=== PATIENT | female | born 1985 | race Caucasian/White ===

== ENCOUNTER 2020-09-14 16:31 | Emergency (ER) | payer MEDICARE, OTHER ==
[~2020-09-14 16:31] MED LIST: ADVAIR 250-501 EACH INH; BACTRIM DS TAB1 EACH PO; CYCLOBENZAPRINE10 MG PO; EFFEXOR XR 75 M75 MG PO; GABAPENTIN800 MG PO; HYDROXYZINE HCL25 MG PO; IBUPROFEN800 MG PO; MONTELUKAST SOD10 MG PO; NORETHINDRONE AC5 MG PO; OXYCODONE-ACET1 EACH PO; PHENERGAN 25 MG25 M1 PO; PREMARIN1.25 MG PO; ROPINIROLE HCL1 MG PO; TOPIRAMATE100 MG PO; TOPROL XL100 MG PO; VAGIFEM10 MCG VG; VALACYCLOVIR1000 MG PO; VENTOLIN HFA 66.7 GM INH; VIBRAMYCIN100 MG PO; VIIBRYD20 MG PO; WELLBUTRIN SR150 M1 PO; ZAFIRLUKAST20 MG PO
== END 2020-09-14 17:44 | disposition left against medical advice (07) ==
LOC: ER1 16:31
DX: R50.9 Fever, unspecified (principal); R09.81 Nasal congestion; M79.10 Myalgia, unspecified site; Z53.21 Procedure and treatment not carried out due to patient leaving prior to being seen by health care provider

== ENCOUNTER → 2020-09-28 | Outpatient (CLI) | payer MEDICARE, OTHER ==
[~2020-09-28] MED LIST changes: +BACITRACIN3.5 GM TOP; +VIBRAMYCIN 100100 MG PO
== END ==
LOC: KOH-I 09-23 09:00
DX: Z01.818 Encounter for other preprocedural examination (principal); Z95.0 Presence of cardiac pacemaker
CPT/HCPCS: 70450

== ENCOUNTER 2021-03-23 18:42 | Emergency (ER) | payer MEDICARE, OTHER ==
[~2021-03-23 18:42] MED LIST changes: -BACITRACIN3.5 GM TOP; -VIBRAMYCIN 100100 MG PO
[2021-03-23] MEDS ORDERED: VIBRAMYCIN 100100 MG PO (22:02)
[2021-03-23] MEDS ORDERED: BACITRACIN3.5 GM TOP (22:02)
== END 2021-03-23 22:50 | disposition home or self-care (01) ==
LOC: ER1 18:42
DX: L02.214 Cutaneous abscess of groin (principal); Z88.2 Allergy status to sulfonamides; Z88.8 Allergy status to other drugs, medicaments and biological substances
CPT/HCPCS: 96374; 96375; 99282; J2270; J2405; J7030

== ENCOUNTER 2021-04-09 03:50 | Emergency (ER) | payer MEDICARE, OTHER ==
[~2021-04-09 03:50] MED LIST changes: +BACITRACIN3.5 GM TOP; +VIBRAMYCIN 100100 MG PO
[2021-04-09 04:33] LABS: HEMOGLOBIN 12.5 gm/dl (12.3-15.3); RED BLOOD COUNT 4.16 M/UL (4.00-5.10); WHITE BLOOD COUNT 11.1 K/UL (4.5-11.0)
[2021-04-09 05:03] LABS: BUN/CREATININE RATIO 20 (0-10)
== END 2021-04-09 07:03 | disposition home or self-care (01) ==
LOC: ER1 03:50
PROVIDERS: Family Medicine
DX: R56.9 Unspecified convulsions (principal); Z53.21 Procedure and treatment not carried out due to patient leaving prior to being seen by health care provider; Z20.822 Contact with and (suspected) exposure to COVID-19
CPT/HCPCS: 0241U; 36415; 71045; 80053; 82550; 82553; 83615; 83874; 84484; 85025; 85652; 86140; 99285

== ENCOUNTER 2022-01-10 08:39 | Emergency (ER) | payer MEDICARE, OTHER ==
[2022-01-10] MEDS ORDERED: HYDROCODON-ACE1 EAC4 PO (11:53)
== END 2022-01-10 12:12 | disposition home or self-care (01) ==
LOC: ER1 08:39
DX: S30.0XXA Contusion of lower back and pelvis, initial encounter (principal); W19.XXXA Unspecified fall, initial encounter
CPT/HCPCS: 72100; 96372; 99283; J2270

== ENCOUNTER 2022-05-13 14:54 | Emergency (ER) | payer MEDICARE, OTHER ==
[~2022-05-13 14:54] MED LIST changes: +HYDROCODON-ACE1 EAC4 PO
[2022-05-13] MEDS ORDERED: CEPHALEXIN500 MG PO (17:47)
[2022-05-13] MEDS ORDERED: NAPROSYN500 MG PO (17:47)
== END 2022-05-13 18:15 | disposition home or self-care (01) ==
LOC: ER1 14:54
DX: N61.1 Abscess of the breast and nipple (principal); Z90.49 Acquired absence of other specified parts of digestive tract; Z90.710 Acquired absence of both cervix and uterus; Z95.0 Presence of cardiac pacemaker; Z88.2 Allergy status to sulfonamides; Z88.8 Allergy status to other drugs, medicaments and biological substances; Z88.1 Allergy status to other antibiotic agents; Z79.899 Other long term (current) drug therapy
CPT/HCPCS: 10060; 87070; 87205; 96372; 99283; J1885